=== PATIENT | female | born 1995 | race Caucasian/White ===

== ENCOUNTER → 2017-08-26 | Outpatient (REF) | payer OTHER, MEDICAID ==
[2017-08-26 18:22] LABS: C REACTIVE PROTEIN QUANTITATIV < 0.30 MG/DL (0.00-0.30)
[2017-08-26 18:22] LABS: RHEUMATOID FACTOR QUANT < 10.0 IU/ML (<15.0)
[2017-08-29 00:07] LABS: ANTINUCLEAR ANTIBODIES DIRECT Negative (Negative)
[2017-08-29 00:07] LABS: EBV VIRAL CAPSID AG IgM <36.0 U/mL (0.0-35.9)
== END ==
LOC: M LAB REF 17:11
DX: R53.83 Other fatigue (principal); M25.50 Pain in unspecified joint; R10.9 Unspecified abdominal pain

== ENCOUNTER 2017-09-13 13:41 | Emergency (ER) | payer OTHER, MEDICAID ==
[2017-09-13] MEDS: ONDANSETRON 4 MG ORAL DISINTEGRATING TAB (Q0162 PER 1MG) PO (14:14)
== END 2017-09-13 16:05 | disposition home or self-care (01) ==
LOC: M ED 13:41
DX: S30.1XXA Contusion of abdominal wall, initial encounter (principal); V43.52XA Car driver injured in collision with other type car in traffic accident, initial encounter; Y92.410 Unspecified street and highway as the place of occurrence of the external cause; Y93.9 Activity, unspecified; Y99.9 Unspecified external cause status; K21.9 Gastro-esophageal reflux disease without esophagitis; Z79.899 Other long term (current) drug therapy
CPT/HCPCS: Q0162

== ENCOUNTER → 2018-06-11 | Outpatient (REF) | payer OTHER ==
[~2018-06-11] MED LIST: KETO10TAB PO; OMEP40CA2 PO; PANT20TA2 PO; VALI5TAB PO
[2018-06-11 13:42] LABS: HEMATOCRIT 38.9 % (36.0-47.0); HEMOGLOBIN 13.3 g/dl (12.0-15.5); MEAN CORPUSCULAR HEMOGLOBIN 29.2 pg (27.0-33.0); MEAN CORPUSCULAR HGB CONC 34.2 g/dl (32.0-36.5); MEAN CORPUSCULAR VOLUME 85.5 fl (80.0-96.0); PLATELET COUNT, AUTOMATED 242 10^3/uL (150-450); RED BLOOD COUNT 4.55 10^6/uL (4.00-5.40); WHITE BLOOD COUNT 6.4 10^3/uL (4.0-10.0)
[2018-06-11 14:20] LABS: FREE T4 1.39 NG/DL (0.76-1.46)
[2018-06-12 14:13] LABS: RUBELLA IgG QUALITATIVE IMMUNE (IMMUNE)
[2018-06-12 14:42] LABS: HEPATITIS C VIRUS ABY INDEX 0.1 INDEX (<0.8); HIV 1&2 SCREEN CENTAUR NEGATIVE (NEGATIVE)
== END ==
LOC: M LAB REF 13:06
PROVIDERS: ATTEND Nurse Practitioner Women's Health
DX: Z32.01 Encounter for pregnancy test, result positive (principal); O36.80X0 Pregnancy with inconclusive fetal viability, not applicable or unspecified

== ENCOUNTER → 2018-06-23 | Outpatient (REF) | payer OTHER | LOC: M LAB REF 13:00 | PROVIDERS: ATTEND Nurse Practitioner Women's Health | DX: O36.80X0 Pregnancy with inconclusive fetal viability, not applicable or unspecified (principal); Z3A.00 Weeks of gestation of pregnancy not specified ==

== ENCOUNTER → 2018-08-04 | Outpatient (REF) | payer OTHER, MEDICAID | LOC: M LAB REF 12:38 | PROVIDERS: ATTEND Nurse Practitioner Women's Health | DX: Z34.01 Encounter for supervision of normal first pregnancy, first trimester (principal); Z3A.00 Weeks of gestation of pregnancy not specified ==

== ENCOUNTER → 2018-10-20 | Outpatient (REF) | payer OTHER, MEDICAID ==
[2018-10-20 13:17] LABS: HEMATOCRIT 34.7 % (36.0-47.0); HEMOGLOBIN 11.8 g/dl (12.0-15.5); MEAN CORPUSCULAR HEMOGLOBIN 30.1 pg (27.0-33.0); MEAN CORPUSCULAR VOLUME 88.5 fl (80.0-96.0); PLATELET COUNT, AUTOMATED 198 10^3/uL (150-450); RED BLOOD COUNT 3.92 10^6/uL (4.00-5.40); WHITE BLOOD COUNT 9.8 10^3/uL (4.0-10.0)
[2018-10-20 14:04] LABS: FREE T4 0.82 NG/DL (0.76-1.46); THYROID STIMULATING HORMONE 1.95 uIU/ML (0.358-3.740)
== END ==
LOC: M LAB REF 12:34
PROVIDERS: ATTEND Nurse Practitioner Women's Health
DX: Z34.02 Encounter for supervision of normal first pregnancy, second trimester (principal); R00.2 Palpitations; Z67.91 Unspecified blood type, Rh negative

== ENCOUNTER → 2018-11-16 | Outpatient (CLI) | payer OTHER, MEDICAID ==
[~2018-11-16] MED LIST changes: +APAP500T10 PO; +EVEN10003 PO; +IBUP80TA PO; -OMEP40CA2 PO; +OMEP40CA97 PO; +PRENTAB9 PO
== END ==
LOC: M LAB 09:51
PROVIDERS: ATTEND Nurse Practitioner Women's Health
DX: Z34.02 Encounter for supervision of normal first pregnancy, second trimester (principal); Z3A.00 Weeks of gestation of pregnancy not specified

== ENCOUNTER → 2019-01-19 | Outpatient (REF) | payer OTHER, MEDICAID ==
[~2019-01-19] MED LIST changes: -APAP500T10 PO; -EVEN10003 PO; -IBUP80TA PO; +OMEP40CA2 PO; -OMEP40CA97 PO; -PRENTAB9 PO
== END ==
LOC: M LAB REF 11:53
PROVIDERS: ATTEND Nurse Practitioner Women's Health
DX: Z36.85 Encounter for antenatal screening for Streptococcus B (principal)

== ENCOUNTER 2019-02-03 12:44 | Inpatient (IN) | payer OTHER, MEDICAID ==
[~2019-02-03] VITALS: Ht 160 cm; Wt 80.9 kg
[2019-02-03] VITALS (31 sets, daily range): BP systolic 85–208; BP diastolic 53–86
[~2019-02-03 12:44] MED LIST changes: -OMEP40CA2 PO; +OMEP40CA97 PO
[2019-02-03] MEDS ORDERED: PRENTAB9 PO (12:58)
[2019-02-03] MEDS ORDERED: EVEN10003 PO (12:58)
[2019-02-03] MEDS ORDERED: APAP500T10 PO (12:58)
[2019-02-03] MEDS ORDERED: LACTATED RINGER'S 1000 ML IV STA (13:47)
[2019-02-03 14:47] LABS: HEMATOCRIT 36.8 % (36.0-47.0); HEMOGLOBIN 12.8 g/dl (12.0-15.5); MEAN CORPUSCULAR HEMOGLOBIN 30.5 pg (27.0-33.0); MEAN CORPUSCULAR HGB CONC 34.8 g/dl (32.0-36.5); MEAN CORPUSCULAR VOLUME 87.6 fl (80.0-96.0); PLATELET COUNT, AUTOMATED 175 10^3/uL (150-450); WHITE BLOOD COUNT 11.3 10^3/uL (4.0-10.0)
[2019-02-03 15:21] LABS: ALT/SGPT 16 U/L (12-78); BILIRUBIN,TOTAL 0.4 MG/DL (0.2-1.0); CREATININE FOR GFR 0.59 MG/DL (0.55-1.30); GLOMERULAR FILTRATION RATE > 60.0 (>60); LDH LACTATE DEHYDROGENASE 236 U/L (84-246)
[2019-02-03] MEDS: LR 1,000 ML IV SCH ×3 (15:30→20:20)
[2019-02-03] MEDS ORDERED: OXYTOCIN DRIP 30 UNITS in IV 1 EA IV SCH ×2 (15:45→22:58)
[2019-02-03] MEDS ORDERED: FENTANYL 2MCG/ML ROPIVACAINE 0.2% IN 0.9% NACL 100ML IVBAG As Ordered ONE (17:08)
[2019-02-03] MEDS ORDERED: ePHEDrine SULFATE 25 MG/5 ML(5MG/ML) SYRINGE As Ordered ONE (17:45)
[2019-02-03] MEDS: ePHEDrine SULFATE 25 MG/5 ML(5MG/ML) SYRINGE IV PRN ×3 (17:47→19:29)
[2019-02-03] MEDS ORDERED: NALOXONE INJ 0.4 MG/1 ML VIAL (J2310) IV PRN (18:15)
[2019-02-03] MEDS ORDERED: FENTANYL/ROPIVACAINE/NACL BAG 100 ML EPIDURAL SCH (18:15)
[2019-02-03] MEDS ORDERED: ONDANSETRON 4MG/2ML VIAL (J2405) IV PRN (18:15)
[2019-02-03] MEDS ORDERED: EPIDURAL COMMENT XX SCH (18:15)
[2019-02-03] MEDS ORDERED: diphenhydrAMINE INJ 50MG/ML VIAL (J1200) IV PRN (18:15)
[2019-02-03] MEDS ORDERED: EPIDURAL/PCA KEYS XX PRN (18:15)
[2019-02-03] MEDS ORDERED: REFRIGERATOR IV KEYS XX PRN (18:15)
--- NOTE | 2019-02-03 19:04 | HPE ---
DATE OF ADMISSION: 02/03/2019 Nicolette is a 23-year-old female 1, para 0 with an EDC of 02/10/2019, EGA 39 weeks gestation who presented to labor and delivery with complaints of spotting and leakage of fluid. Upon evaluation she was found to be grossly ruptured with bloody show. Cervix was 3 cm dilated, 80% effaced, fetus at -3 station. At this point a decision was made for admission. Her record reviewed which was essentially unremarkable. lab blood type is O negative, rubella immune, hepatitis negative, HIV negative, GC chlamydia negative, 1-hour sugar testing was within normal limits. Her GBS is negative. She did initiate care at [facility] in her first trimester. PAST MEDICAL HISTORY: Denies. PAST SURGICAL HISTORY: [place] tooth extraction. SOCIAL HISTORY: She denies any alcohol, drug or cigarette smoking. REVIEW OF SYSTEMS: Unremarkable. MEDICATIONS: vitamin ALLERGIES: NO KNOWN DRUG ALLERGIES. PHYSICAL EXAMINATION: Normal-appearing female in no acute distress. HEENT: Grossly within normal limits. Abdomen: Soft, nontender, nondistended. Extremities: No clubbing, cyanosis or edema. Vaginal exam 3 cm 80% fetus at -3 station grossly ruptured with bloody show tracing reviewed category one tracing with irregular contractions. ASSESSMENT: Intrauterine at 39 weeks gestation with gross rupture of membrane in early labor. GBS negative. PLAN: Admit to labor and delivery. Routine labs sent. Pain management discussed. The patient opted for an epidural will continue to monitor. Anticipate delivery.
[2019-02-03] MEDS ORDERED: ACETAMINOPHEN 500 MG TAB PO PRN (23:00)
[2019-02-03] MEDS ORDERED: DOCUSATE SODIUM 100 MG CAP PO PRN (23:00)
[2019-02-03] MEDS ORDERED: ACETAMINOPHEN TAB 650MG DOSE (2X325MG) PO PRN (23:00)
[2019-02-03] MEDS ORDERED: DIBUCAINE 1% OINTMENT 30GM TOP PRN (23:00)
[2019-02-03] MEDS ORDERED: METHYLERGONOVINE MALEATE 0.2 MG TAB PO PRN (23:00)
[2019-02-03] MEDS ORDERED: IBUPROFEN 600 MG TAB PO PRN (23:00)
[2019-02-03] MEDS ORDERED: ANUSOL HC CREAM 30GM TOP PRN (23:00)
[2019-02-03] MEDS ORDERED: RHOGAM 300 MCG (1500 IU) INJ (J2790) IM SCH (23:00)
[2019-02-03] MEDS ORDERED: MEASLES,MUMPS,RUBELLA VACCINE INJ (MMR-II) (90707) SC SCH (23:00)
[2019-02-03 23:04] LABS: CORD GAS HCO3 A 16.6 MEQ/L; CORD GAS O2 SAT A 31.6 %; CORD GAS PCO2 A 47.7 mmHg; CORD GAS PH A 7.16 UNITS; CORD GAS PO2 A 20.5 mmHg; CORD GAS SBC A 13.9 MEQ/L; CORD GAS TCO2 A 18.1 MEQ/L
[2019-02-03 23:06] LABS: CORD GAS ABE V -9.6; CORD GAS HCO3 V 17.4 MEQ/L; CORD GAS O2 SAT V 48.7 %; CORD GAS PCO2 V 41.7 mmHg; CORD GAS PH V 7.238 UNITS; CORD GAS PO2 V 24.1 mmHg; CORD GAS SBC V 15.9 MEQ/L; CORD GAS TCO2 V 18.7 MEQ/L
[2019-02-04 02:07] VITALS: BP 148/59
--- NOTE | 2019-02-04 05:41 | DN ---
DATE: OF DELIVERY: 02/03/2019 Nicolette is a 23-year-old female 1, para 0 who was admitted at 39 weeks gestation with spontaneous rupture of membranes in early labor. She progressed to fully dilated after Pitocin augmentation and delivered a live male in occiput posterior position. 9 and 9, weight 7 pounds, 5 ounces. Terminal meconium noted. Placenta delivered spontaneously intact three-vessel cord. Perineum, vagina and cervix inspected, right labial laceration noted which was repaired using 3-0 chromic. Estimated blood loss 300 mL. Both mother and baby in stable condition.
[2019-02-04 06:30] VITALS: BP 111/53
[2019-02-04] MEDS: IBUPROFEN 800 MG TAB PO PRN ×2 (07:45→17:44)
[2019-02-04] MEDS: PRENATAL VITAMINS CHEWABLE TABLET PO SCH (10:02)
[2019-02-04 11:34] VITALS: BP 128/78
[2019-02-04 18:00] VITALS: BP 119/78
[2019-02-05] MEDS: IBUPROFEN 800 MG TAB PO PRN (02:37)
[2019-02-05 06:00] VITALS: BP 101/55
[2019-02-05] MEDS ORDERED: IBUP80TA PO (07:37)
[2019-02-05] MEDS: PRENATAL VITAMINS CHEWABLE TABLET PO SCH (09:00)
== END 2019-02-05 11:55 | disposition home or self-care (01) | DRG 807 ==
LOC: M LDO 12:44 → M LDI 13:48 → M OBS 02-04 01:36
PROVIDERS: ADMIT Obstetrics & Gynecology; ATTEND Obstetrics & Gynecology
PROC: 10E0XZZ Delivery of Products of Conception, External Approach (ICD-10-PCS; principal; 2019-02-03)
PROC: 0HQ9XZZ Repair Perineum Skin, External Approach (ICD-10-PCS; 2019-02-03)
DX: O70.0 First degree perineal laceration during delivery (principal); Z37.0 Single live birth; Z3A.39 39 weeks gestation of pregnancy

== ENCOUNTER → 2020-04-11 | Outpatient (CLI) | payer SELFPAY ==
[~2020-04-11] MED LIST changes: +APAP500T10 PO; +EVEN10003 PO; +IBUP80TA PO; -PANT20TA2 PO; +PANT20TA6 PO; +PRENTAB9 PO
== END ==
LOC: M LABSMTC 18:18
PROVIDERS: ATTEND Pediatrics
DX: Z11.59 Encounter for screening for other viral diseases (principal)

== ENCOUNTER → 2021-09-12 | Outpatient (REF) | payer OTHER, MEDICAID ==
[~2021-09-12] MED LIST changes: +OMEP40CA4 PO; -OMEP40CA97 PO
== END ==
LOC: M LAB REF 12:27
PROVIDERS: ATTEND Physician Assistant
DX: J02.9 Acute pharyngitis, unspecified (principal)

== ENCOUNTER 2021-09-15 08:52 | Emergency (ER) | payer OTHER, MEDICAID ==
[~2021-09-15] VITALS: Ht 160 cm; Wt 77.7 kg
[2021-09-15] MEDS ORDERED: NAPR220C14 PO (09:21)
[2021-09-15] MEDS ORDERED: LIDOCAINE 5% (LIDODERM) PATCH TD ONE (13:15)
[2021-09-15] MEDS ORDERED: KETOROLAC 60MG 2ML VIAL IM ONE (13:15)
[2021-09-15] MEDS ORDERED: METH-1165 PO (13:21)
[2021-09-15] MEDS ORDERED: KETO10TAB PO (13:21)
[2021-09-15] MEDS ORDERED: LIDO5DIS41 TD (13:21)
[2021-09-15 13:41] VITALS: BP 123/64
[2021-09-16] MEDS ORDERED: **NOTE PATIENT COMMENT** MISC XX ONE (02:00)
== END 2021-09-15 13:42 | disposition home or self-care (01) ==
LOC: M ED 08:52
DX: S39.012A Strain of muscle, fascia and tendon of lower back, initial encounter (principal); Y92.9 Unspecified place or not applicable; Y93.F2 Activity, caregiving, lifting; Y99.0 Civilian activity done for income or pay
CPT/HCPCS: 96372; 99283; J1885

== ENCOUNTER → 2022-01-30 | Outpatient (REF) | payer OTHER, MEDICAID ==
[~2022-01-30] MED LIST changes: +LIDO5DIS41 TD; +METH-1165 PO; +NAPR220C14 PO
== END ==
LOC: M SFHCWAGY 16:41
PROVIDERS: ATTEND Nurse Practitioner Family
DX: Z12.4 Encounter for screening for malignant neoplasm of cervix (principal); Z01.419 Encounter for gynecological examination (general) (routine) without abnormal findings; Z77.9 Other contact with and (suspected) exposures hazardous to health

== ENCOUNTER → 2022-06-05 | Outpatient (REF) ==
[2022-06-05 10:44] LABS: RSV AMPLIFICATION NEGATIVE (NEGATIVE)
== END ==
LOC: M LABSMTC 09:16
PROVIDERS: ATTEND Family Medicine
DX: Z00.00 Encounter for general adult medical examination without abnormal findings (principal)

== ENCOUNTER → 2022-09-09 | Outpatient (REF) | payer OTHER, MEDICAID ==
[2022-09-09 15:21] LABS: BASO % 0.3 % (0.0-1.0); EOS # 0.1 10^3/uL (0.0-0.5); EOS % 1.6 % (0.0-3.0); HEMATOCRIT 44.3 % (36.0-47.0); HEMOGLOBIN 14.3 g/dl (12.0-15.5); LYMPH # 1.7 10^3/uL (1.5-5.0); LYMPH % 27.5 % (24.0-44.0); MEAN CORPUSCULAR HEMOGLOBIN 28.8 pg (27.0-33.0); MEAN CORPUSCULAR HGB CONC 32.3 g/dl (32.0-36.5); MEAN CORPUSCULAR VOLUME 89.1 fl (80.0-96.0); MONO # 0.4 10^3/uL (0.0-0.8); MONO % 5.9 % (2.0-8.0); NEUTROPHILS % 64.5 % (36.0-66.0); PLATELET COUNT, AUTOMATED 231 10^3/uL (150-450); RED BLOOD COUNT 4.97 10^6/uL (4.00-5.40); WHITE BLOOD COUNT 6.3 10^3/uL (4.0-10.0)
[2022-09-09 15:44] LABS: ERYTHROCYTE SEDIMENTATION RATE 8 mm/hr (0-20)
[2022-09-09 15:55] LABS: IRON (FE) 92 UG/DL (50-170)
[2022-09-09 15:56] LABS: ALKALINE PHOSPHATASE 80 U/L (46-116); ALT/SGPT 18 U/L (7.0-40); AST/SGOT 16 U/L (<34); BILIRUBIN,TOTAL 0.6 MG/DL (0.3-1.2); BLOOD UREA NITROGEN 13 MG/DL (9-23); CALCIUM LEVEL 8.8 MG/DL (8.5-10.1); CARBON DIOXIDE LEVEL 26 MMOL/L (20-31); CHLORIDE LEVEL 105 MMOL/L (98-107); CREATININE FOR GFR 0.71 MG/DL (0.55-1.30); GLOMERULAR FILTRATION RATE > 60.0 (>60); GLUCOSE, FASTING 87 MG/DL (60-100); PERCENT SATURATION 27.1 % (13.2-45.0); SODIUM LEVEL 139 MMOL/L (136-145); TOTAL IRON BINDING CAPACITY 340 UG/DL (250-425); TOTAL PROTEIN 7.5 G/DL (5.7-8.2)
[2022-09-09 15:58] LABS: C REACTIVE PROTEIN QUANTITATIV < 0.40 MG/DL (<1.0); THYROID STIMULATING HORMONE 1.457 uIU/ML (0.55-4.78)
[2022-09-09 15:59] LABS: FERRITIN 84.5 NG/ML (7.3-270.7)
[2022-09-09 16:00] LABS: VITAMIN B12 LEVEL 544 PG/ML (211-911)
[2022-09-09 16:01] LABS: FREE T4 1.12 NG/DL (0.89-1.76)
[2022-09-09 17:21] LABS: FOLATE 21.7 NG/ML (>5.4)
== END ==
LOC: M SFHCADAM 08:39
PROVIDERS: ATTEND Physician Assistant
DX: R53.82 Chronic fatigue, unspecified (principal); E07.9 Disorder of thyroid, unspecified

== ENCOUNTER → 2022-10-02 | Outpatient (REF) | payer MEDICAID, OTHER ==
[2022-10-03 16:09] LABS: EBV VIRAL CAPSID AG IgM <36.0 U/mL (0.0-35.9)
== END ==
LOC: M SFHCADAM 08:15
PROVIDERS: ATTEND Physician Assistant
DX: R20.2 Paresthesia of skin (principal); M25.551 Pain in right hip; M25.552 Pain in left hip

== ENCOUNTER → 2022-10-02 | Outpatient (CLI) | payer MEDICAID, OTHER | LOC: M ADAMS 08:24 | PROVIDERS: ATTEND Physician Assistant | DX: R20.2 Paresthesia of skin (principal); M25.551 Pain in right hip; M25.552 Pain in left hip ==

== ENCOUNTER → 2022-10-11 | Outpatient (CLI) | payer OTHER | LOC: M RAD 15:15 | PROVIDERS: ATTEND Physician Assistant | DX: E28.2 Polycystic ovarian syndrome (principal) ==

== ENCOUNTER → 2022-12-12 | Outpatient (CLI) | payer OTHER, MEDICAID | LOC: M ADAMS 09:32 | PROVIDERS: ATTEND Physician Assistant | DX: M79.651 Pain in right thigh (principal); M79.652 Pain in left thigh ==

== ENCOUNTER → 2022-12-12 | Outpatient (REF) | payer OTHER, MEDICAID ==
[2022-12-13 15:09] LABS: EBV VIRAL CAPSID AG IgM <36.0 U/mL (0.0-35.9)
== END ==
LOC: M SFHCADAM 09:10
PROVIDERS: ATTEND Physician Assistant
DX: R53.83 Other fatigue (principal)

== ENCOUNTER → 2022-12-24 | Outpatient (CLI) | payer OTHER | LOC: M RAD 08:23 | PROVIDERS: ATTEND Surgery Vascular Surgery | DX: I87.2 Venous insufficiency (chronic) (peripheral) (principal); N94.89 Other specified conditions associated with female genital organs and menstrual cycle ==

== ENCOUNTER → 2023-01-20 | Outpatient (REF) | LOC: M EMP 09:42 | PROVIDERS: ATTEND Family Medicine | DX: Z11.52 Encounter for screening for COVID-19 (principal) ==

== ENCOUNTER → 2023-02-28 | Outpatient (REF) | payer OTHER, MEDICAID | LOC: M SFHCWAGY 17:11 | PROVIDERS: ATTEND Nurse Practitioner Family | DX: Z12.4 Encounter for screening for malignant neoplasm of cervix (principal) ==

== ENCOUNTER → 2023-03-11 | Outpatient (CLI) | payer OTHER, MEDICAID | LOC: M ADAMS 10:15 | PROVIDERS: ATTEND Physician Assistant | DX: R07.81 Pleurodynia (principal) ==

== ENCOUNTER → 2023-03-11 | Outpatient (CLI) | payer OTHER ==
[2023-03-11 11:34] LABS: BASO % 0.2 % (0.0-1.0); EOS % 0.1 % (0.0-3.0); HEMATOCRIT 44.1 % (36.0-47.0); HEMOGLOBIN 14.6 g/dl (12.0-15.5); LYMPH # 1.6 10^3/uL (1.5-5.0); LYMPH % 10.5 % (24.0-44.0); MEAN CORPUSCULAR HEMOGLOBIN 28.9 pg (27.0-33.0); MEAN CORPUSCULAR HGB CONC 33.1 g/dl (32.0-36.5); MEAN CORPUSCULAR VOLUME 87.2 fl (80.0-96.0); MONO # 0.5 10^3/uL (0.0-0.8); MONO % 3.6 % (2.0-8.0); NEUTROPHILS # 12.9 10^3/uL (1.5-8.5); NEUTROPHILS % 84.7 % (36.0-66.0); PLATELET COUNT, AUTOMATED 267 10^3/uL (150-450); RED BLOOD COUNT 5.06 10^6/uL (4.00-5.40); WHITE BLOOD COUNT 15.2 10^3/uL (4.0-10.0)
== END ==
LOC: M LAB 11:02
PROVIDERS: ATTEND Physician Assistant
DX: R07.81 Pleurodynia (principal)

== ENCOUNTER → 2023-04-25 | Outpatient (REF) | payer OTHER ==
[2023-04-25 14:08] LABS: URIC ACID 4.6 MG/DL (3.1-7.8)
[2023-04-25 14:09] LABS: C REACTIVE PROTEIN QUANTITATIV < 0.40 MG/DL (<1.0)
[2023-04-25 14:10] LABS: THYROID STIMULATING HORMONE 1.473 uIU/ML (0.55-4.78)
[2023-04-25 14:11] LABS: FREE T4 1.11 NG/DL (0.89-1.76)
[2023-04-25 14:16] LABS: RHEUMATOID FACTOR QUANT < 3.5 IU/ML (<14)
[2023-04-26 23:09] LABS: ANA (HEP2) Negative (.); CYCLIC CITRULLINATED PEPTIDE 8 units (0-19)
== END ==
LOC: M SFHCADAM 09:50
PROVIDERS: ATTEND Physician Assistant
DX: G89.29 Other chronic pain (principal); R53.82 Chronic fatigue, unspecified

== ENCOUNTER → 2023-04-30 | Outpatient (REF) ==
[2023-04-30 13:47] LABS: RSV AMPLIFICATION NEGATIVE (NEGATIVE)
== END ==
LOC: M EMP 11:04
PROVIDERS: ATTEND Family Medicine
DX: Z11.52 Encounter for screening for COVID-19 (principal)

== ENCOUNTER → 2023-08-07 | Outpatient (CLI) | payer OTHER | LOC: M PLARAD 10:04 | PROVIDERS: ATTEND Physician Assistant | DX: M25.551 Pain in right hip (principal); M25.552 Pain in left hip ==

== ENCOUNTER → 2023-10-03 | Outpatient (CLI) | payer OTHER | LOC: M PLAIMG 14:25 | PROVIDERS: ATTEND Physician Assistant | DX: G93.0 Cerebral cysts (principal) ==

== ENCOUNTER → 2023-12-24 | Outpatient (REF) | payer OTHER | LOC: M SFHCRHEU 08:29 | PROVIDERS: ATTEND Internal Medicine Rheumatology | DX: M25.50 Pain in unspecified joint (principal) ==

== ENCOUNTER → 2024-01-20 | Outpatient (REF) | payer OTHER | LOC: M SFHCADAM 09:23 | PROVIDERS: ATTEND Family Medicine | DX: R09.81 Nasal congestion (principal); Z53.9 Procedure and treatment not carried out, unspecified reason ==

== ENCOUNTER → 2024-04-16 | Outpatient (REF) | payer OTHER | LOC: M SFHCRHEU 10:44 | PROVIDERS: ATTEND Internal Medicine Rheumatology | DX: M25.50 Pain in unspecified joint (principal); R53.83 Other fatigue; R20.0 Anesthesia of skin; R20.2 Paresthesia of skin; Z53.9 Procedure and treatment not carried out, unspecified reason ==

== ENCOUNTER → 2024-05-07 | Outpatient (REF) | payer OTHER ==
[2024-05-07 15:02] LABS: THYROID STIMULATING HORMONE 0.973 uIU/ML (0.55-4.78)
[2024-05-07 15:03] LABS: FREE T4 1.27 NG/DL (0.89-1.76); HEMOGLOBIN A1c 4.9 % (4.0-6.0); TOTAL 25(OH) VITAMIN D 20.2 NG/ML (20.0-100.0)
[2024-05-07 15:04] LABS: FOLATE 8.5 NG/ML (>5.4)
== END ==
LOC: M SFHCADAM 08:31
PROVIDERS: ATTEND Physician Assistant
DX: R53.83 Other fatigue (principal); M54.16 Radiculopathy, lumbar region; M25.50 Pain in unspecified joint; R20.0 Anesthesia of skin; R20.2 Paresthesia of skin

== ENCOUNTER → 2024-05-07 | Outpatient (CLI) | payer OTHER | LOC: M ADAMS 08:38 | PROVIDERS: ATTEND Internal Medicine Rheumatology | DX: M79.641 Pain in right hand (principal); M79.642 Pain in left hand; M79.671 Pain in right foot; M79.672 Pain in left foot; M25.50 Pain in unspecified joint; R53.83 Other fatigue; R20.0 Anesthesia of skin; R20.2 Paresthesia of skin ==

== ENCOUNTER → 2024-05-07 | Outpatient (REF) | payer OTHER ==
[2024-05-07 14:59] LABS: C REACTIVE PROTEIN QUANTITATIV < 0.50 MG/DL (<1.0); CPK CREATINE PHOSPHOKINASE 77 U/L (34-145); LDH LACTATE DEHYDROGENASE 164 U/L (120-246)
[2024-05-07 15:00] LABS: ALBUMIN 4.1 G/DL (3.2-5.2); ALKALINE PHOSPHATASE 87 U/L (35-104); ALT/SGPT 29 U/L (7.0-40); AST/SGOT 16 U/L (<34); BILIRUBIN,TOTAL 0.6 MG/DL (0.3-1.2); BLOOD UREA NITROGEN 13 MG/DL (9-23); CALCIUM LEVEL 9.3 MG/DL (8.5-10.1); CARBON DIOXIDE LEVEL 27 MMOL/L (20-31); CHLORIDE LEVEL 105 MMOL/L (98-107); GLOMERULAR FILTRATION RATE > 60.0 (>60); GLUCOSE, FASTING 88 MG/DL (60-100); POTASSIUM SERUM 4.4 MMOL/L (3.5-5.1); SODIUM LEVEL 141 MMOL/L (136-145); TOTAL PROTEIN 7.9 G/DL (5.7-8.2)
[2024-05-07 15:08] LABS: BASO % 0.5 % (0.0-1.0); EOS # 0.1 10^3/uL (0.0-0.5); EOS % 1.9 % (0.0-3.0); HEMATOCRIT 44.4 % (36.0-47.0); HEMOGLOBIN 14.9 g/dl (12.0-15.5); LYMPH # 1.7 10^3/uL (1.5-5.0); LYMPH % 29.4 % (24.0-44.0); MEAN CORPUSCULAR HEMOGLOBIN 29.9 pg (27.0-33.0); MEAN CORPUSCULAR HGB CONC 33.6 g/dl (32.0-36.5); MEAN CORPUSCULAR VOLUME 89.2 fl (80.0-96.0); MONO # 0.3 10^3/uL (0.0-0.8); MONO % 5.1 % (2.0-8.0); NEUTROPHILS # 3.6 10^3/uL (1.5-8.5); NEUTROPHILS % 62.9 % (36.0-66.0); PLATELET COUNT, AUTOMATED 248 10^3/uL (150-450); RED BLOOD COUNT 4.98 10^6/uL (4.00-5.40); WHITE BLOOD COUNT 5.7 10^3/uL (4.0-10.0)
[2024-05-07 15:20] LABS: ERYTHROCYTE SEDIMENTATION RATE 10 mm/hr (0-20)
[2024-05-10 15:57] LABS: ALDOLASE 3.2 U/L (< OR = 8.1)
== END ==
LOC: M LABDRWAD 14:28
PROVIDERS: ATTEND Internal Medicine Rheumatology
DX: M25.50 Pain in unspecified joint (principal); R53.83 Other fatigue; R20.0 Anesthesia of skin; R20.2 Paresthesia of skin